=== PATIENT | male | born 1950 ===

== ENCOUNTER 2019-05-15 12:15 | Inpatient (IN) | payer OTHER ==
[~2019-05-15] VITALS: Ht 188 cm; Wt 90.7 kg
[2019-05-15] MEDS ORDERED: COZAAR50 MG (12:23)
[2019-05-15] MEDS ORDERED: GLUCOTROL XL5 MG (12:23)
== END 2019-05-16 17:54 | disposition home or self-care (01) | DRG 682 ==
LOC: ER 12:15 → SURH 19:53
PROVIDERS: ADMIT Internal Medicine
PROC: 5A1D70Z Performance of Urinary Filtration, Intermittent, Less than 6 Hours Per Day (ICD-10-PCS; principal; 2019-05-16)
DX: I12.0 Hypertensive chronic kidney disease with stage 5 chronic kidney disease or end stage renal disease (principal); N18.6 End stage renal disease; N17.8 Other acute kidney failure; E11.22 Type 2 diabetes mellitus with diabetic chronic kidney disease; R53.1 Weakness; D63.1 Anemia in chronic kidney disease; Z99.2 Dependence on renal dialysis; Z79.4 Long term (current) use of insulin